=== PATIENT | male | born 1940 | race Two or more races ===

== ENCOUNTER 2022-02-19 09:25 | Inpatient (IN) | payer OTHER ==
[~2022-02-19] VITALS: Ht 177.8 cm; Wt 94.8 kg
[2022-02-19] MEDS ORDERED: MICARDIS80 MG PO (10:14)
[2022-02-19] MEDS ORDERED: HORIZANT300 MG (10:14)
[2022-02-19] MEDS ORDERED: FUSION PLUS CA1 EACH PO (10:14)
--- NOTE | 2022-02-19 10:18 | NUR ---
PACIENTE ALERTA Y ORIENTADOX3, REFIERE QUE VIENE POR PARTE DEL DR. BILL SHAH PARA REALIZARSE COLONOSCOPIA.
[2022-02-26] MEDS ORDERED: NEURONTIN300 MG PO (08:51)
[2022-02-26] MEDS ORDERED: LIPITOR20 MG PO (08:51)
[2022-02-26] MEDS ORDERED: TOPROL XL25 M1 PO (08:51)
[2022-02-26] MEDS ORDERED: CLONAZEPAM0.5 MG PO (08:52)
== END 2022-02-22 14:05 | disposition home or self-care (01) | DRG 376 ==
LOC: ER 09:25 → SURH 11:02
PROVIDERS: ADMIT Surgery; ATTEND Surgery
PROC: 0DBK8ZX Excision of Ascending Colon, Via Natural or Artificial Opening Endoscopic, Diagnostic (ICD-10-PCS; principal; 2022-02-19)
PROC: 3E0H8KZ Introduction of Other Diagnostic Substance into Lower GI, Via Natural or Artificial Opening Endoscopic (ICD-10-PCS; 2022-02-20)
DX: C18.2 Malignant neoplasm of ascending colon (principal); C61 Malignant neoplasm of prostate; G62.9 Polyneuropathy, unspecified; G47.33 Obstructive sleep apnea (adult) (pediatric); I71.21 Aneurysm of the ascending aorta, without rupture; I11.9 Hypertensive heart disease without heart failure; D51.3 Other dietary vitamin B12 deficiency anemia; D50.8 Other iron deficiency anemias

== ENCOUNTER 2022-06-24 04:35 | Emergency (ER) | payer OTHER ==
[~2022-06-24] VITALS: Ht 177.8 cm; Wt 89.8 kg
[~2022-06-24 04:35] MED LIST: CLONAZEPAM0.5 MG PO; FUSION PLUS CA1 EACH PO; HORIZANT300 MG; INTESTINEX680 M1 PO; LIPITOR20 MG PO; LOSARTAN POTASS25 MG PO; MICARDIS80 MG PO; NEURONTIN300 MG PO; TOPROL XL25 M1 PO
[2022-06-24] MEDS ORDERED: PEPCID AC20 MG PO (12:51)
== END 2022-06-24 13:20 | disposition home or self-care (01) ==
LOC: ER 04:35
DX: R19.7 Diarrhea, unspecified (principal); E86.0 Dehydration; R42 Dizziness and giddiness; I10 Essential (primary) hypertension

== ENCOUNTER 2022-07-09 13:47 | Inpatient (IN) | payer OTHER ==
[~2022-07-09] VITALS: Ht 177.8 cm; Wt 89.8 kg
[~2022-07-09 13:47] MED LIST changes: +PEPCID AC20 MG PO
[2022-07-09] MEDS ORDERED: CLONAZEPAM0.5 MG (13:53)
[2022-07-13] MEDS ORDERED: PRILOSEC OTC20 MG PO (09:31)
[2022-07-13] MEDS ORDERED: METRONIDAZOLE500 MG PO (09:31)
[2022-07-13] MEDS ORDERED: INTESTINEX680 M1 PO (09:31)
[2022-07-13] MEDS ORDERED: CIPRO500 MG PO (09:31)
[2022-07-13] MEDS ORDERED: CLONAZEPAM0.5 MG PO (09:31)
== END 2022-07-13 10:01 | disposition home or self-care (01) | DRG 641 ==
LOC: ER 13:47 → MEDI 17:42
PROVIDERS: ADMIT Internal Medicine; ATTEND Internal Medicine
PROC: BW2110Z Computerized Tomography (CT Scan) of Abdomen and Pelvis using Low Osmolar Contrast, Unenhanced and Enhanced (ICD-10-PCS; principal; 2022-07-11)
DX: E86.0 Dehydration (principal); K51.518 Left sided colitis with other complication; K56.0 Paralytic ileus; N13.30 Unspecified hydronephrosis; N13.4 Hydroureter; C18.0 Malignant neoplasm of cecum; B34.9 Viral infection, unspecified; I10 Essential (primary) hypertension; J44.9 Chronic obstructive pulmonary disease, unspecified; G47.33 Obstructive sleep apnea (adult) (pediatric); D47.2 Monoclonal gammopathy; I71.21 Aneurysm of the ascending aorta, without rupture; D51.3 Other dietary vitamin B12 deficiency anemia; D69.6 Thrombocytopenia, unspecified; Z90.49 Acquired absence of other specified parts of digestive tract

== ENCOUNTER 2022-08-20 17:48 | Inpatient (IN) | payer OTHER ==
[~2022-08-20] VITALS: Ht 180.3 cm; Wt 77.1 kg
[~2022-08-20 17:48] MED LIST changes: +CIPRO500 MG PO; +CLONAZEPAM0.5 MG; +METRONIDAZOLE500 MG PO; +PRILOSEC OTC20 MG PO
[2022-08-20] MEDS ORDERED: TAGAMET HB200 MG PO (18:06)
[2022-08-20] MEDS ORDERED: SERTRALINE20 MG/1 ML PO (18:08)
[2022-08-26] MEDS ORDERED: SERTRALINE HCL25 MG (13:10)
[2022-08-26] MEDS ORDERED: ABANEU-SL TABL1 EACH (13:10)
[2022-08-26] MEDS ORDERED: DICYCLOMINE HCL20 MG (13:10)
[2022-08-26] MEDS ORDERED: OMEPRAZOLE20 MG (13:11)
[2022-08-26] MEDS ORDERED: ATORVASTATIN CA20 MG (13:11)
[2022-08-26] MEDS ORDERED: FOLIC ACID1 MG (13:11)
[2022-08-26] MEDS ORDERED: PANTOPRAZOLE SO40 MG (13:11)
[2022-09-02] MEDS ORDERED: LOSARTAN POTASS25 MG PO (08:17)
[2022-09-02] MEDS ORDERED: GABAPENTIN300 MG PO (08:18)
[2022-09-02] MEDS ORDERED: SERTRALINE HCL25 MG PO (08:19)
[2022-09-02] MEDS ORDERED: INTESTINEX680 M1 PO (08:20)
[2022-09-02] MEDS ORDERED: PANTOPRAZOLE SO40 MG PO (08:21)
[2022-09-02] MEDS ORDERED: ABANEU-SL TABL1 EACH SL (08:22)
[2022-09-02] MEDS ORDERED: FOLIC ACID1 MG PO (08:22)
[2022-09-02] MEDS ORDERED: CLONAZEPAM0.5 MG PO (08:23)
[2022-09-02] MEDS ORDERED: TOPROL XL25 M1 PO (08:23)
== END 2022-09-02 10:26 | disposition home or self-care (01) | DRG 329 ==
LOC: ER 17:48 → SURG 08-21 08:57 → SEC-K 08-21 08:57 → SURH 08-21 14:40 → SURG 08-23 13:55
PROVIDERS: ADMIT Surgery; ATTEND Surgery
PROC: BW211ZZ Computerized Tomography (CT Scan) of Abdomen and Pelvis using Low Osmolar Contrast (ICD-10-PCS; 2022-08-20)
PROC: 0D9670Z Drainage of Stomach with Drainage Device, Via Natural or Artificial Opening (ICD-10-PCS; 2022-08-21)
PROC: 8E0ZXY6 Isolation (ICD-10-PCS; 2022-08-21)
PROC: 02HV33Z Insertion of Infusion Device into Superior Vena Cava, Percutaneous Approach (ICD-10-PCS; 2022-08-21)
PROC: 0D9P8ZZ Drainage of Rectum, Via Natural or Artificial Opening Endoscopic (ICD-10-PCS; 2022-08-23)
PROC: 0D9L8ZZ Drainage of Transverse Colon, Via Natural or Artificial Opening Endoscopic (ICD-10-PCS; 2022-08-23)
PROC: 0DCP8ZZ Extirpation of Matter from Rectum, Via Natural or Artificial Opening Endoscopic (ICD-10-PCS; 2022-08-23)
PROC: 0D1L0Z4 Bypass Transverse Colon to Cutaneous, Open Approach (ICD-10-PCS; principal; 2022-08-23 19:15)
PROC: B54MZZZ Ultrasonography of Right Upper Extremity Veins (ICD-10-PCS; 2022-08-28)
PROC: BT1F1ZZ Fluoroscopy of Left Kidney, Ureter and Bladder using Low Osmolar Contrast (ICD-10-PCS; 2022-08-28)
DX: C18.7 Malignant neoplasm of sigmoid colon (principal); K56.2 Volvulus; K91.89 Other postprocedural complications and disorders of digestive system; K56.690 Other partial intestinal obstruction; C77.9 Secondary and unspecified malignant neoplasm of lymph node, unspecified; I74.2 Embolism and thrombosis of arteries of the upper extremities; D84.81 Immunodeficiency due to conditions classified elsewhere; N13.1 Hydronephrosis with ureteral stricture, not elsewhere classified; K62.4 Stenosis of anus and rectum; R91.8 Other nonspecific abnormal finding of lung field; D51.3 Other dietary vitamin B12 deficiency anemia; D69.59 Other secondary thrombocytopenia; J44.9 Chronic obstructive pulmonary disease, unspecified; I11.9 Hypertensive heart disease without heart failure; I71.21 Aneurysm of the ascending aorta, without rupture; Z90.49 Acquired absence of other specified parts of digestive tract

== ENCOUNTER 2023-03-21 09:54 | Day surgery (SDC) | payer OTHER ==
[2023-03-17 10:44] LABS: URINE APPEARANCE Clear; URINE BACTERIA 23.9 uL (0.0-1933); URINE BILIRRUBIN Negative (NEGATIVE); URINE BLOOD Negative; URINE COLOR Yellow; URINE GLUCOSE Negative (NEGATIVE); URINE LEUKOCYTE Trace; URINE NITRATE Negative; URINE PROTEIN Trace (NEGATIVE); URINE RBC 7.9 uL (0.0-20.8); URINE UROBILINOGEN 0.2 E.U./dl; URINE WBC 14.5 uL (0.0-23.2)
[2023-03-17 10:58] LABS: INR 0.99; PARTIAL THROMBOPLASTIN TIME 29.9 SECONDS (22.0-34.0); PROTHROMBIN TIME 10.4 SECONDS (9.0-11.5)
[~2023-03-21 09:54] MED LIST changes: +ABANEU-SL TABL1 EACH; +ABANEU-SL TABL1 EACH SL; +ATORVASTATIN CA20 MG; +DICYCLOMINE HCL20 MG; +FOLIC ACID1 MG; +FOLIC ACID1 MG PO; +GABAPENTIN300 MG PO; +OMEPRAZOLE20 MG; +PANTOPRAZOLE SO40 MG; +PANTOPRAZOLE SO40 MG PO; +SERTRALINE HCL25 MG; +SERTRALINE HCL25 MG PO; +SERTRALINE20 MG/1 ML PO; +TAGAMET HB200 MG PO
[2023-03-21] MEDS ORDERED: GENTAMICIN SULFATE 40 MG/ML VIAL ONE (13:17)
[2023-03-21] MEDS ORDERED: CHLORHEXIDINE GLUCONATE 120 ML BOTTLE TOP ONE ×2 (13:46→15:15)
[2023-03-21] MEDS ORDERED: IOVERSOL 320 MG/ML - 50 ML VIAL IV ONE (14:24)
[2023-03-21] MEDS ORDERED: GENTAMICIN SULFATE 40 MG/ML VIAL IV ONE (15:15)
[2023-03-21] MEDS ORDERED: IOVERSOL 320 MG/ML - 100 ML VIAL IV ONE (15:15)
== END 2023-03-21 17:50 | disposition home or self-care (01) ==
LOC: CIR.AMB 09:54 → U 09:54 → CIR.AMB 17:50
PROVIDERS: ATTEND Urology
DX: N13.1 Hydronephrosis with ureteral stricture, not elsewhere classified (principal); Z20.822 Contact with and (suspected) exposure to COVID-19; I10 Essential (primary) hypertension